=== PATIENT | female | born 1950 | race Hispanic/Latino ===

== ENCOUNTER → 2017-11-23 | Outpatient (CLI) | payer MEDICARE ==
[~2017-11-23] MED LIST: ASPIRIN PO; B-100 COMPLEX1 EACH PO; BP PILL; GLIPIZIDE5 MG PO; GLUCOSAMINE PO; HYZAAR 100-12.1 EACH PO; LEVOTHYROXINE50 MCG PO; LOVASTATIN40 MG PO; METOPROLOL TART25 MG PO; THYROID PILL; VITAMIN D; VITAMIN D31000 UNIT PO; [UNRECOGNIZED DRUG - OTHER] PO
== END ==
LOC: SLEEP 19:31
PROVIDERS: ATTEND Otolaryngology
DX: G47.33 Obstructive sleep apnea (adult) (pediatric) (principal)
CPT/HCPCS: 95810

== ENCOUNTER → 2018-01-25 | Outpatient (CLI) | payer MEDICARE ==
--- NOTE | 2018-02-03 07:43 | Polysomnography ---
Truncated dictation Re-dictated Job#: [id number] CF MTDD
--- NOTE | 2018-02-03 07:48 | Polysomnography ---
DATE OF STUDY: January 25, 2018 TITRATION POLYSOMNOGRAM REFERRING PHYSICIAN: Dr. Hermelindo Rodrigues MD HISTORY: Ms. Rubalcava is a 67-year-old female with obstructive sleep apnea. On November 23, 2017, she had a diagnostic polysomnogram demonstrating apnea-hypopnea index of 15.7 events per hour with lowest oxygen saturation of 88%. BMI is 41.6. [place] sleepiness Scale score is 12. Patient presents for a titration polysomnogram. FINDINGS: Polysomnogram demonstrated total sleep time of 242.5 minutes with sleep efficiency of 59.6%. Sleep onset latency was achieved in 30 minutes with excess wakefulness after sleep onset. CPAP was initiated at 6 cm of water pressure and incrementally increased to 14 cm of water delivered using a [employer] Brevida One-size nasal pillow mask, heated humidifier, and C-Flex of 2. At the optimal CPAP pressure setting of 14 cm of water, the apnea-hypopnea index was 0 events per hour and the lowest oxygen saturation was 91%. Side sleep was studied at this pressure and REM was last studied at pressure of 12 cm of water where the apnea-hypopnea index was also 0 events per hour. Periodic limb movement index was 0 events per hour. Single-lead EKG analysis was unremarkable. INTERPRETATION: This overnight CPAP titration study revealed: 1. Significant improvement in terms of alleviation of obstructive sleep apnea at the optimal CPAP pressure of 14 cm of water delivered using a [employer] Brevida one-size nasal pillow mask, heated humidifier, and C-Flex of 2. The same settings are recommended for use during sleep. Se Gabriel Certified in Sleep Medicine Job#: [id number] DR PEREIRA
== END ==
LOC: SLEEP 19:34
PROVIDERS: ATTEND Otolaryngology
DX: G47.33 Obstructive sleep apnea (adult) (pediatric) (principal)
CPT/HCPCS: 95811

== ENCOUNTER 2021-06-29 18:38 | Emergency (ER) | payer MEDICARE, OTHER ==
[~2021-06-29] VITALS: Ht 165.1 cm; Wt 110.7 kg
== END 2021-06-29 22:36 | disposition home or self-care (01) ==
LOC: ER 19:03
DX: S00.83XA Contusion of other part of head, initial encounter (principal); M25.561 Pain in right knee; M25.562 Pain in left knee; M25.522 Pain in left elbow; M79.672 Pain in left foot; W01.0XXA Fall on same level from slipping, tripping and stumbling without subsequent striking against object, initial encounter; Y93.01 Activity, walking, marching and hiking; Y92.89 Other specified places as the place of occurrence of the external cause
CPT/HCPCS: 70450; 72125; 99283

== ENCOUNTER → 2024-05-15 | Day surgery (SDC) | payer MEDICARE ==
[2024-05-13 14:19] LABS: BASOPHILS % 0.5 % (0.0-1.0); EOSINOPHILS # (AUTO) 0.2 (0.0-0.4); EOSINOPHILS % 2.6 % (0.0-6.0); HEMATOCRIT 39.1 % (34.2-44.1); HEMOGLOBIN 12.7 g/dL (12.0-16.0); LYMPHOCYTES % 32.8 % (18.0-39.1); MEAN CORPUSCULAR HEMOGLOBIN 29.2 pg (28-32); MEAN CORPUSCULAR HGB CONC 32.5 g/dL (31-35); MEAN CORPUSCULAR VOLUME 89.9 fL (81-99); MONOCYTES # (AUTO) 0.5 (0.2-0.8); MONOCYTES % 7.9 % (4.4-11.3); NEUTROPHILS # (AUTO) 3.4 (2.1-6.9); NEUTROPHILS % 55.7 % (38.7-80.0); PLATELET COUNT 235 x10e3/uL (140-360); RED BLOOD COUNT 4.35 x10e6/uL (3.6-5.1); RED CELL DISTRIBUTION WIDTH 12.9 % (11.7-14.4); WHITE BLOOD COUNT 6.18 x10e3/uL (4.8-10.8)
[~2024-05-15] MED LIST changes: +ATORVASTATIN CA20 MG PO; +BENEFIBER1 EAC1; +BIOTIN1000 MCG PO; +CALCIUM CITRAT480 GM; +CENTRUM WOMEN1 EACH; +FAMOTIDINE20 MG PO; +GLIMEPIRIDE2 MG PO; +GLUCOSAMINE SU750 M1; +GLYCOPYRROLATE INJ 0.2 MG/ML VIAL ONE; +LACTATED RINGER'S 1,000 ML ONE; +LIDOCAINE HCL 2% LOCAL INJ 5 ML SDV VIAL INJ ONE; +LOSARTAN POTAS100 MG PO; +MAGNESIUM PO; +MELATONIN3 MG PO; +METFORMIN HCL1000 MG PO; +METOCLOPRAMIDE HCL 10 MG/2ML VIAL ONE; +NEURONTIN100 MG PO; +PROPOFOL IV EMULSION 10 MG/ML 20 ML VIAL ONE; +TRAZODONE HCL50 MG PO; +TRIAMTERENE-HCTZ1 EA PO; +TURMERIC CURCU1 EACH; +VITAMIN B121000 MCG PO; +VITAMIN C500 MG PO
[2024-05-15 17:25] VITALS: BP 159/80; PULSE 79; RESP 16; TEMP 97.5; O2SAT 98
== END | disposition home or self-care (01) ==
LOC: OR 13:31
PROVIDERS: ATTEND Internal Medicine Gastroenterology
DX: K29.50 Unspecified chronic gastritis without bleeding (principal); K29.80 Duodenitis without bleeding; Q40.8 Other specified congenital malformations of upper alimentary tract; K44.9 Diaphragmatic hernia without obstruction or gangrene; E73.9 Lactose intolerance, unspecified; R74.8 Abnormal levels of other serum enzymes; R19.8 Other specified symptoms and signs involving the digestive system and abdomen; G47.30 Sleep apnea, unspecified; E11.9 Type 2 diabetes mellitus without complications; I10 Essential (primary) hypertension; E78.5 Hyperlipidemia, unspecified; E03.9 Hypothyroidism, unspecified; G62.9 Polyneuropathy, unspecified; Z01.810 Encounter for preprocedural cardiovascular examination; Z01.812 Encounter for preprocedural laboratory examination; Z79.84 Long term (current) use of oral hypoglycemic drugs; Z79.899 Other long term (current) drug therapy; Z68.34 Body mass index [BMI] 34.0-34.9, adult
CPT/HCPCS: 36415; 43239; 85025; 88305; 88342; 93005; J2003; J2704; J2765; J7121; 88312